=== PATIENT | female | born 1940 | race Caucasian/White ===

== ENCOUNTER 2016-10-15 11:17 | Emergency (ER) | payer OTHER ==
[2016-10-15 11:23] VITALS: TEMP 99; BMI 32.3
--- NOTE | 2016-10-15 11:30 | PDOC ---
History of Present Illness - General History Source: Patient Exam Limitations: No Limitations - History of Present Illness Initial Comments: 10/15/16 13:41 The patient is a 76 year old female, with a significant past medical history of HTN, who presents to the emergency department with upper back pain and left shoulder pain for days. She reports her pain is constant throughout the day. She reports going to a Clinic for treatment, and reports never having x-rays or perscribed pain medication for her pain. She reports taking Advil with good alleviation of her pain. She denies any recent trauma or injury to her back or shoulder area. She denies any UE numbness/tingling or swelling. She denies any pain with exertion or walking around, but often notes her shoulder/back pain is made worse when she lifts her left upper extremities. She also states having a brief episode of mild chest pain 6 days ago which has since resolved after seeing her PCP. She denies any neck pain. She denies recent fevers, chills, headache or dizziness. She denies recent nausea, vomit, diarrhea or constipation. She denies any recent SOB. Allergies: NKA Past surgical history: None reported. Social history: Nonsmoker. Denies EtOH use and recreational drug use. <Marco A Vigil - Last Filed: 10/15/16 13:41> <Brent Odonnell - Last Filed: 10/15/16 15:27> - General Chief Complaint: Back Pain Stated Complaint: BACK PAIN Time Seen by Provider: 10/15/16 11:26 Past History <Marco A Vigil - Last Filed: 10/15/16 13:41> - Past Medical History HTN: Yes - Surgical History Cholecystectomy: Yes - Psycho/Social/Smoking Cessation Hx Anxiety: No Suicidal Ideation: No Smoking History: Never smoked Hx Alcohol Use: No Drug/Substance Use Hx: No Substance Use Type: None <Brent Odonnell - Last Filed: 10/15/16 15:27> - Past Medical History Allergies/Adverse Reactions: Allergies Allergy/AdvReac Type Severity Reaction Status Date / Time No Known Allergies Allergy Verified 10/15/16 11:22 Review of Systems - Review of Systems Able to Perform ROS?: Yes Comments:: 10/15/16 13:42 CONSTITUTIONAL: No reported: Fever, Chills, Diaphoresis, Generalized Weakness, Malaise, Loss of Appetite HEENT: No reported: Rhinorrhea, Nasal Congestion, Throat Pain, Throat Swelling, Difficulty Swallowing, Mouth Swelling, Ear Pain, Eye Pain, Visual Changes CARDIOVASCULAR: No reported: Chest Pain, Syncope, Palpitations, Irregular Heart Rate, Lightheadedness, Peripheral Edema RESPIRATORY: No reported: Cough, Shortness of Breath, SOB with Exertion, Orthopnea, Wheezing , Stridor, Hemoptysis GASTROINTESTINAL: No reported: Abdominal pain, Abdominal Distension, Nausea, Vomiting, Diarrhea, Constipation, Melena, Hematochezia GENITOURINARY: No reported: Dysuria, Frequency, Urgency, Hesitancy, Flank Pain, Genital Pain MUSCULOSKELETAL: +Back pain and left shoulder pain. No reported: Myalgia, Arthralgia, Joint Swelling, Neck Pain SKIN: No reported: Rash, Itching, Pallor HEMATOLOGIC/IMMUNOLOGIC: No reported: Easy Bleeding, Easy Bruising, Lymphadenopathy, Frequent infections ENDOCRINE: No reported: Unexplained Weight Gain, Unexplained Weight Loss, Heat Intolerance , Cold Intolerance NEUROLOGIC: No reported: Headache, Focal Weakness, Paresthesias, Vertigo, Lightheadedness, Unsteady Gait, Seizure, Mental Status Changes, Incontinence PSYCHIATRIC: No reported: Anxiety, Depression <Marco A Vigil - Last Filed: 10/15/16 13:41> *Physical Exam - Vital Signs Last Vital Signs Temp Pulse Resp BP Pulse Ox 99.0 F 118 H 18 143/118 99 10/15/16 11:19 10/15/16 11:19 10/15/16 11:19 10/15/16 11:19 10/15/16 11:19 - Physical Exam Comments: 10/15/16 13:42 GENERAL: The patient is awake, alert, and fully oriented, Nontoxic - in no acute distress. HEAD: Normocephalic, atraumatic. EYES: extraocular movements intact, sclera anicteric, conjunctiva clear. ENT: Normal voice, Moist mucous membranes. NECK: Normal range of motion, supple LUNGS: Breath sounds equal, clear to auscultation bilaterally. No wheezes, no rhonchi, no rales. HEART: Regular rate and rhythm, without murmur, rub or gallop. BACK: Reproducable tenderness to the Left trapzeius and upper back. ABDOMEN: Soft, nontender, normoactive bowel sounds. No guarding, no rebound.No CVA tenderness EXTREMITIES: Normal range of motion of arms w/o limitations, no edema. neg homans, no calf tenderness. Pulses symmetric in upper/lower extremities. NEUROLOGICAL: No facial asymmetry, Normal speech. PSYCH: Normal mood, normal affect. SKIN: Warm, Dry, normal turgor. no rashes appreaciated in back. <Marco A Vigil - Last Filed: 10/15/16 13:41> - Vital Signs Last Vital Signs Temp Pulse Resp BP Pulse Ox 99.0 F 118 H 18 143/118 99 10/15/16 11:19 10/15/16 11:19 10/15/16 11:19 10/15/16 11:19 10/15/16 11:19 <Brent Odonnell - Last Filed: 10/15/16 15:27> Heart Score/ECG Review - ECG Impressions Comment:: 10/15/16 12:32 Twelve-lead EKG was performed and reviewed by me. There is normal sinus rhythm with a rate of 112 left axis deviation <Brent Odonnell - Last Filed: 10/15/16 15:27> ED Treatment Course - LABORATORY CBC & Chemistry Diagram: 10/15/16 12:00 10/15/16 12:00 - ADDITIONAL ORDERS Additional order review: Laboratory Results 10/15/16 12:00 Sodium 139 Potassium 3.9 Chloride 98 Carbon Dioxide 32 Anion Gap 9 BUN 16 Creatinine 0.9 Creat Clearance w eGFR > 60 Random Glucose 119 H Calcium 9.4 Total Bilirubin 0.4 AST 28 ALT 29 Alkaline Phosphatase 119 H Creatine Kinase 159 CK-MB (CK-2) 2.244 Troponin I < 0.02 Total Protein 7.5 Albumin 3.9 10/15/16 12:00 RBC 4.48 MCV 92.2 MCHC 34.0 RDW 15.1 MPV 8.1 Neutrophils % 67.6 Lymphocytes % 22.2 Monocytes % 6.8 Eosinophils % 3.0 Basophils % 0.4 - Medications Given in the ED: ED Medications Discontinued Medications Generic Name Dose Route Start Last Admin Trade Name Freq PRN Reason Stop Dose Admin Sodium Chloride 1,000 mls @ 1,000 mls/hr 10/15/16 11:43 10/15/16 11:58 Normal Saline - IV 10/15/16 12:42 1,000 mls/hr .Q1H ONE Administration Ibuprofen 400 mg 10/15/16 11:43 10/15/16 11:58 Motrin - PO 10/15/16 11:44 400 mg ONCE ONE Administration <Marco A Vigil - Last Filed: 10/15/16 13:41> - LABORATORY CBC & Chemistry Diagram: 10/15/16 12:00 10/15/16 12:00 <Brent Odonnell - Last Filed: 10/15/16 15:27> Medical Decision Making - Medical Decision Making 10/15/16 11:56 76y F hx of htn, presents with L sided back pain/shoulder pain x 2 months, the shoulder/upper back pain is worse when she moves her left shoulder. no associated numness/tingling/weakness, pt did endorse mild chest pani6 days ago thta resolved, but non recently. no exertional symptoms. pts exam noted for reproducible pain in the trapezius and in the paraspinal thoracic area. pt also noted to be tachycardic to 118. suspect msk cause will obtain ekg/cxr/trop due to hx of cp, althoug hpts pain seems atypical of acs will obtain thoracic xray will give motrin will reassess A portion of this note was documented by scribe services under my direction. I have reviewed the details of the note, within reason, and agree with the documentation with the following case summary and management plan written by me 10/15/16 14:35 pt feeling improved labs unremrakable xrays reviewed will dc with pmd fu return precautions were discussed I discussed the physical exam findings, ancillary test results and final diagnoses with the patient. I answered all of the patient's questions. The patient was satisfied with the care received and felt comfortable with the discharge plan and treatment plan. The patient will call their primary care physician within 24 hours to arrange follow-up and will return to the Emergency Department with any new, persistent or worsening symptoms. <Brent Odonnell - Last Filed: 10/15/16 15:27> *DC/Admit/Observation/Transfer - Attestations Scribe Attestion: 10/15/16 13:42 Documentation prepared by Marco A Vigil, acting as resident medical officer for Brent Odonnell MD. <Marco A Vigil - Last Filed: 10/15/16 13:41> - Discharge Dispostion Admit: No <Brent Odonnell - Last Filed: 10/15/16 15:27> Diagnosis at time of Disposition: Muscle strain of left upper back Qualifiers: Encounter type: initial encounter Qualified Code(s): S29.012A - Strain of muscle and tendon of back wall of thorax, initial encounter - Discharge Dispostion Disposition: HOME Condition at time of disposition: Improved - Referrals Referrals: Liz Workman MD [Staff Physician] - - Patient Instructions Printed Discharge Instructions: DI for Thoracic Back Pain Additional Instructions: Vuelva al departamento de emergencia inmediatamente con CUALQUIER nuevo, persistente o empeorando los sntomas incluyendo entumecimiento, hormigueo, debilidad, fiebre o cualquier otra preocupacin. [place] ibuprofeno (400mg) / tylenol (650mg) cada 6 horas misael 2 escobar. Aplicar calor a los msculos doloridos. Debe llamar y seguir con bello mdico maana para candice evaluacin ms detallada de olinda sntomas. Bello visita al departamento de emergencias no est completa sin un seguimiento con bello mdico para bello reevaluacin. Los resultados se discutieron con usted. Por favor, asegrese de que bello mdico revise los resultados de bello evaluacin de emergencia. Return to the emergency department immediately with ANY new, persistent or worsening symptoms including numbness, tingling, weakness, fevers or any other concerns. Take ibuprofen (400mg)/tylenol(650mg) every 6 hours for 2 days. Apply heat to your sore muscles. You MUST call and follow up with your doctor tomorrow for further evaluation of your symptoms. Your emergency department visit is not complete without a followup with your doctor for reevaluation.. Results were discussed with you. Please make sure your doctor reviews the results of your emergency evaluation. Print Language: GEORGIAN
[2016-10-15] MEDS ORDERED: IBUPROFEN 400 MG TABLET (FP) PO ONE ×2 (11:43→11:56)
[2016-10-15] MEDS ORDERED: SODIUM CHLORIDE 1,000 ML IV ONE (11:43)
[2016-10-15 12:09] LABS: BASOPHIL 0.4 % (0-2.0); MCH 31.3 pg (25.7-33.7); MEAN CELL VOLUME 92.2 fl (80-96); MEAN PLT VOLUME 8.1 fl (7.5-11.1); NEUTROPHILS 67.6 % (42.8-82.8); PLATELET COUNT 361 K/MM3 (134-434); RDW 15.1 % (11.6-15.6); WHITE BLOOD COUNT 6.1 K/mm3 (4.0-10.0)
[2016-10-15 12:41] LABS: ALBUMIN 3.9 g/dl (3.4-5.0); ANION GAP 9 (8-16); BILIRUBIN,TOTAL 0.4 mg/dL (0.2-1.0); CALCIUM 9.4 mg/dL (8.5-10.1); CO2 32 mmol/L (21-32); CREATININE 0.9 mg/dL (0.55-1.02); GLUCOSE,RANDOM 119 mg/dL (74-106); SGOT/AST 28 U/L (15-37); SGPT/ALT 29 U/L (12-78); TOT PROT 7.5 g/dl (6.4-8.2)
[2016-10-15 12:43] LABS: ALK PHOS 119 U/L (45-117); TROPONIN I < 0.02 ng/ml (0.00-0.05)
[2016-10-15 16:30] VITALS: BP 150/80; PULSE 90
--- NOTE | 2016-10-16 11:10 | EKG ---
Test Reason : Blood Pressure : / mmHG Vent. Rate : 112 BPM Atrial Rate : 112 BPM P-R Int : 162 ms QRS Dur : 082 ms QT Int : 324 ms P-R-T Axes : -05 -53 003 degrees QTc Int : 442 ms SINUS TACHYCARDIA WITH FUSION COMPLEXES LEFT AXIS DEVIATION ABNORMAL ECG NO PREVIOUS ECGS AVAILABLE Confirmed by NKECHI OH, CHELSEA ([id number]) on 10/16/2016 11:09:47 AM Referred By: Confirmed By:CHELSEA ARBOLEDA MD
== END 2016-10-15 16:31 | disposition home or self-care (01) ==
LOC: JER 11:17
PROC: 3E0337Z Introduction of Electrolytic and Water Balance Substance into Peripheral Vein, Percutaneous Approach (ICD-10-PCS; principal; 2016-10-15)
DX: S29.012A Strain of muscle and tendon of back wall of thorax, initial encounter (principal); X58.XXXA Exposure to other specified factors, initial encounter; Y93.89 Activity, other specified; Y92.89 Other specified places as the place of occurrence of the external cause
CPT/HCPCS: 36415; 71020-TC; 72070-TC; 80053; 82550; 82553; 84484; 85025; 93005; 93010; 96360; 99281-25

== ENCOUNTER 2022-11-20 17:27 | Observation (INO) | payer OTHER ==
[2022-11-20 17:36] VITALS: BMI 32.0
[2022-11-20] MEDS ORDERED: SODIUM CHLORIDE 0.9% 500 ML INFUS.BAG IV ONE (18:54)
[2022-11-20 19:40] LABS: BASO % 0.2 % (0-2.0); EOS % 0.1 % (0-4.5); HEMATOCRIT 42.5 % (32.4-45.2); HEMOGLOBIN 14.2 GM/dL (10.7-15.3); LYMPH % 4.1 % (8-40); MCH 30.2 pg (25.7-33.7); MCHC 33.3 g/dl (32.0-36.0); MEAN CELL VOLUME 90.8 fl (80-96); MEAN PLT VOLUME 9.7 fl (7.5-11.1); MONO % 3.4 % (3.8-10.2); NEUT % 92.2 % (42.8-82.8); PLATELET COUNT 308 10^3/uL (134-434); RBC 4.68 M/mm3 (3.60-5.2); RDW 13.3 % (11.6-15.6); WHITE BLOOD COUNT 11.9 K/mm3 (4.0-10.0)
[2022-11-20 19:56] LABS: POTASSIUM 5.8 mmol/L (3.5-5.1)
[2022-11-20 19:58] LABS: CALCIUM 9.4 mg/dL (8.5-10.1)
[2022-11-20 20:02] LABS: CREATININE 1.7 mg/dL (0.55-1.3)
[2022-11-20 20:03] LABS: BILIRUBIN,TOTAL 0.4 mg/dL (0.2-1); TOT PROT 7.3 g/dl (6.4-8.2)
[2022-11-21] MEDS ORDERED: MELATONIN 5 MG TABLETS PO ONE (00:33)
[2022-11-21] MEDS ORDERED: PATIENT'S OWN MEDICATION (NON-FORMULARY) (Alendronate Sodium [Fosamax] 70 MG Tablet) PO SCH (00:45)
[2022-11-21] MEDS: SODIUM CHLORIDE 1,000 ML IV SCH ×2 (01:08→12:33)
[2022-11-21 03:28] LABS: EPI CELLS 6 /uL (0-25.1); HYALINE CASTS 0 /uL (0-3.1); URINE APPEARANCE CLEAR; URINE BACTERIA 8 /uL (0-1359); URINE BILIRUBIN NEGATIVE (NEGATIVE); URINE COLOR YELLOW; URINE GLUCOSE (UA) NEGATIVE (NEGATIVE); URINE KETONE NEGATIVE (NEGATIVE); URINE LEUK ESTERASE TRACE (NEGATIVE); URINE NITRITE NEGATIVE (NEGATIVE); URINE PROTEIN NEGATIVE (NEGATIVE); URINE RBC 10 /uL (0-23.9); URINE UROBILINOGEN 0.2 mg/dL (0.2-1.0); URINE WBC 19 /uL (0-25.8)
[2022-11-21] MEDS ORDERED: HEPARIN NA (PORCINE) 5,000 UNITS/ML 1ML VIAL SQ SCH (06:00)
[2022-11-21] MEDS: LEVOTHYROXINE NA 50 MCG TABLET (FP) PO SCH (07:02)
[2022-11-21 08:49] LABS: HEMATOCRIT 37.8 % (32.4-45.2); HEMOGLOBIN 12.2 GM/dL (10.7-15.3); MCH 29.8 pg (25.7-33.7); MCHC 32.2 g/dl (32.0-36.0); MEAN CELL VOLUME 92.6 fl (80-96); MEAN PLT VOLUME 10.5 fl (7.5-11.1); PLATELET COUNT 262 10^3/uL (134-434); RBC 4.08 M/mm3 (3.60-5.2)
[2022-11-21 09:03] LABS: POTASSIUM 4.6 mmol/L (3.5-5.1)
[2022-11-21 09:09] LABS: CALCIUM 8.6 mg/dL (8.5-10.1)
[2022-11-21 09:10] LABS: ALBUMIN 3.2 g/dl (3.4-5.0); BLOOD UREA NITROGEN 21.8 mg/dL (7-18)
[2022-11-21 09:13] LABS: PHOSPHOROUS 2.9 mg/dL (2.5-4.9)
[2022-11-21 09:14] LABS: BILIRUBIN,TOTAL 0.3 mg/dL (0.2-1); TOT PROT 6.2 g/dl (6.4-8.2)
[2022-11-21] MEDS ORDERED: CALCIUM (OYSTER SHELL) 500 MG TABLET (FP) PO SCH (10:00)
[2022-11-21] MEDS ORDERED: VALSARTAN 160 MG TABLET PO SCH (10:00)
[2022-11-21] MEDS ORDERED: amLODIPine BESYLATE 10 MG TABLET (FP) PO SCH (10:00)
[2022-11-21] MEDS ORDERED: CEFTRIAXONE 1 GM in DEXTROSE 5%-WATER - 50 ML IVPB SCH (12:00)
[2022-11-21] MEDS ORDERED: MIRTAZAPINE 15 MG TABLET (FP) PO SCH (22:00)
[2022-11-22] MEDS: LEVOTHYROXINE NA 50 MCG TABLET (FP) PO SCH (06:12)
[2022-11-22] MEDS ORDERED: SODIUM CHLORIDE 1,000 ML IV SCH (08:31)
[2022-11-22 10:02] LABS: INR 1.09 (0.83-1.09); PROTHROMBIN TIME (PATIENT) 12.6 SEC (9.7-13.0)
[2022-11-22 10:03] LABS: BASO % 0.5 % (0-2.0); EOS % 0.9 % (0-4.5); HEMATOCRIT 35.2 % (32.4-45.2); HEMOGLOBIN 11.8 GM/dL (10.7-15.3); LYMPH % 13.6 % (8-40); MCH 30.3 pg (25.7-33.7); MCHC 33.3 g/dl (32.0-36.0); MEAN CELL VOLUME 90.8 fl (80-96); MEAN PLT VOLUME 9.5 fl (7.5-11.1); MONO % 5.4 % (3.8-10.2); NEUT % 79.6 % (42.8-82.8); PLATELET COUNT 238 10^3/uL (134-434); RBC 3.88 M/mm3 (3.60-5.2); RDW 13.1 % (11.6-15.6)
[2022-11-22 10:21] LABS: POTASSIUM 3.8 mmol/L (3.5-5.1)
[2022-11-22 10:28] LABS: CREATININE 1.1 mg/dL (0.55-1.3)
[2022-11-22 10:30] LABS: BILIRUBIN,TOTAL 0.2 mg/dL (0.2-1); BLOOD UREA NITROGEN 13.7 mg/dL (7-18); TOT PROT 5.7 g/dl (6.4-8.2)
[2022-11-22 10:31] LABS: CALCIUM 8.1 mg/dL (8.5-10.1)
[2022-11-22 10:32] LABS: MAGNESIUM 1.9 mg/dL (1.8-2.4)
[2022-11-22 10:35] LABS: PHOSPHOROUS 2.7 mg/dL (2.5-4.9)
[2022-11-22] MEDS: amLODIPine BESYLATE 10 MG TABLET (FP) PO SCH (10:39)
[2022-11-22] MEDS: VALSARTAN 160 MG TABLET PO SCH (10:39)
[2022-11-22] MEDS: CALCIUM (OYSTER SHELL) 500 MG TABLET (FP) PO SCH (10:39)
[2022-11-22] MEDS: CEFTRIAXONE 1 GM in DEXTROSE 5%-WATER - 50 ML IVPB SCH (11:04)
[2022-11-22 19:21] LABS: HEMATOCRIT 38.4 % (32.4-45.2); HEMOGLOBIN 12.7 GM/dL (10.7-15.3); MEAN CELL VOLUME 90.9 fl (80-96); MEAN PLT VOLUME 9.6 fl (7.5-11.1); PLATELET COUNT 283 10^3/uL (134-434); RBC 4.22 M/mm3 (3.60-5.2); RDW 13.2 % (11.6-15.6); WHITE BLOOD COUNT 10.5 K/mm3 (4.0-10.0)
[2022-11-22] MEDS: MIRTAZAPINE 15 MG TABLET (FP) PO SCH (21:32)
[2022-11-22 23:34] VITALS: RESP 18
[2022-11-23] MEDS: LEVOTHYROXINE NA 50 MCG TABLET (FP) PO SCH (06:14)
[2022-11-23] MEDS: amLODIPine BESYLATE 10 MG TABLET (FP) PO SCH (09:26)
[2022-11-23] MEDS: CALCIUM (OYSTER SHELL) 500 MG TABLET (FP) PO SCH (09:26)
[2022-11-23] MEDS: CEFTRIAXONE 1 GM in DEXTROSE 5%-WATER - 50 ML IVPB SCH (09:26)
[2022-11-23] MEDS: VALSARTAN 160 MG TABLET PO SCH (09:26)
[2022-11-23] MEDS: MIRTAZAPINE 15 MG TABLET (FP) PO SCH (21:30)
[2022-11-24] MEDS: LEVOTHYROXINE NA 50 MCG TABLET (FP) PO SCH (06:02)
[2022-11-24] MEDS: CEFTRIAXONE 1 GM in DEXTROSE 5%-WATER - 50 ML IVPB SCH (09:32)
[2022-11-24] MEDS: VALSARTAN 160 MG TABLET PO SCH (09:32)
[2022-11-24] MEDS: CALCIUM (OYSTER SHELL) 500 MG TABLET (FP) PO SCH (09:33)
[2022-11-24] MEDS: amLODIPine BESYLATE 10 MG TABLET (FP) PO SCH (09:33)
[2022-11-24 10:32] LABS: BASO % 0.9 % (0-2.0); EOS % 1.5 % (0-4.5); HEMATOCRIT 38.9 % (32.4-45.2); HEMOGLOBIN 12.8 GM/dL (10.7-15.3); LYMPH % 24.5 % (8-40); MCH 30.1 pg (25.7-33.7); MEAN CELL VOLUME 91.2 fl (80-96); MEAN PLT VOLUME 9.5 fl (7.5-11.1); MONO % 8.8 % (3.8-10.2); NEUT % 64.3 % (42.8-82.8); PLATELET COUNT 320 10^3/uL (134-434); RBC 4.27 M/mm3 (3.60-5.2); RDW 12.9 % (11.6-15.6); WHITE BLOOD COUNT 6.6 K/mm3 (4.0-10.0)
[2022-11-24 10:50] LABS: POTASSIUM 4.5 mmol/L (3.5-5.1)
[2022-11-24 10:55] LABS: BLOOD UREA NITROGEN 13.3 mg/dL (7-18)
[2022-11-24 10:56] LABS: CALCIUM 8.4 mg/dL (8.5-10.1)
[2022-11-24 10:57] LABS: ALBUMIN 3.3 g/dl (3.4-5.0)
[2022-11-24 10:59] LABS: BILIRUBIN,TOTAL 0.4 mg/dL (0.2-1); TOT PROT 6.6 g/dl (6.4-8.2)
[2022-11-24] MEDS: MIRTAZAPINE 15 MG TABLET (FP) PO SCH (21:36)
[2022-11-25] MEDS: LEVOTHYROXINE NA 50 MCG TABLET (FP) PO SCH (06:00)
[2022-11-25 08:38] LABS: HEMOGLOBIN 11.7 GM/dL (10.7-15.3); MCHC 33.6 g/dl (32.0-36.0); MEAN CELL VOLUME 89.6 fl (80-96); MEAN PLT VOLUME 9.1 fl (7.5-11.1); PLATELET COUNT 262 10^3/uL (134-434); RBC 3.91 M/mm3 (3.60-5.2); RDW 13.4 % (11.6-15.6); WHITE BLOOD COUNT 5.2 K/mm3 (4.0-10.0)
[2022-11-25 09:01] LABS: POTASSIUM 4.4 mmol/L (3.5-5.1)
[2022-11-25 09:12] LABS: CALCIUM 8.2 mg/dL (8.5-10.1)
[2022-11-25 09:14] LABS: BLOOD UREA NITROGEN 13.9 mg/dL (7-18)
[2022-11-25 09:17] LABS: CREATININE 0.9 mg/dL (0.55-1.3)
[2022-11-25 12:00] VITALS: BP 137/71; PULSE 74; TEMP 98.7
[2022-11-25] MEDS: VALSARTAN 160 MG TABLET PO SCH (12:03)
[2022-11-25] MEDS: CALCIUM (OYSTER SHELL) 500 MG TABLET (FP) PO SCH (12:04)
[2022-11-25] MEDS: amLODIPine BESYLATE 10 MG TABLET (FP) PO SCH (12:04)
== END 2022-11-25 15:00 | disposition home or self-care (01) ==
LOC: JER 17:27 → JERBED 20:50 → J4W 22:15 → J5S 11-21 23:52
PROVIDERS: ADMIT Internal Medicine; ATTEND Internal Medicine
PROC: 3E03329 Introduction of Other Anti-infective into Peripheral Vein, Percutaneous Approach (ICD-10-PCS; principal; 2022-11-20)
PROC: 3E0337Z Introduction of Electrolytic and Water Balance Substance into Peripheral Vein, Percutaneous Approach (ICD-10-PCS; 2022-11-20)
PROC: 3E0337Z Introduction of Electrolytic and Water Balance Substance into Peripheral Vein, Percutaneous Approach (ICD-10-PCS; 2022-11-20)
DX: K52.9 Noninfective gastroenteritis and colitis, unspecified (principal); R00.0 Tachycardia, unspecified; N17.9 Acute kidney failure, unspecified; E03.9 Hypothyroidism, unspecified; I10 Essential (primary) hypertension; R55 Syncope and collapse
CPT/HCPCS: 36415; 71045-TC-FY; 74177-TC; 80048; 80053; 81003; 82436; 82570; 83036; 83735; 83935; 84100; 84133; 84300; 84484; 85025; 85027; 85610; 86140; 86850; 86900; 86901; 87045; 87046; 87086; 87186; 87205; 87324; 87425; 87427; 87449; 93005; 93010; 96361; 96365; 96366; 96367; 96368; 97116-GP; 97162-GP; 99285-25; G0378; Q9967